=== PATIENT | female | born 1945 | race Caucasian/White ===

== ENCOUNTER 2023-12-30 14:16 | Day surgery (SDC) | payer MEDICARE, OTHER, SELFPAY ==
[2023-12-30 09:41] VITALS: BMI 34.5
[2023-12-30 09:49] VITALS: BMI 34.5
[2023-12-30 09:50] VITALS: BP 138/74; BMI 34.5
[2023-12-30 10:16] LABS: Glucose - Point of Care 121 mg/dl (70-99)
[2023-12-30 12:09] LABS: Glucose - Point of Care 114 mg/dl (70-99)
[2023-12-30 13:50] VITALS: BP 124/66
[2023-12-30 14:00] VITALS: BP 127/77
[2023-12-30 14:06] LABS: Glucose - Point of Care 83 mg/dl (70-99)
[2023-12-30 14:15] VITALS: BP 133/93
[2023-12-30 14:16] VITALS: BP 164/109
[2023-12-30 14:22] VITALS: BP 133/93
== END 2023-12-30 14:30 | disposition home or self-care (01) ==
LOC: GI 14:16
PROVIDERS: ATTENDING PHYSICIAN Internal Medicine Gastroenterology
DX: K31.7 Polyp of stomach and duodenum (principal)
CPT/HCPCS: 43235; 82962

== ENCOUNTER 2024-01-20 06:36 | Day surgery (SDC) | payer MEDICARE, OTHER, SELFPAY ==
[2024-01-20] VITALS (10 sets, daily range): BP systolic 83–149; BP diastolic 36–108; BMI 36.2
[2024-01-20 10:31] LABS: Glucose - Point of Care 119 mg/dl (70-99)
[2024-01-20 12:35] LABS: Glucose - Point of Care 132 mg/dl (70-99)
[2024-01-20] MEDS: ZOFRAN 4 MG IV (13:47)
== END 2024-01-20 13:57 | disposition home or self-care (01) ==
LOC: GI 06:36
PROVIDERS: ATTENDING PHYSICIAN Internal Medicine Gastroenterology
DX: K86.2 Cyst of pancreas (principal); K83.8 Other specified diseases of biliary tract; K83.9 Disease of biliary tract, unspecified; D13.5 Benign neoplasm of extrahepatic bile ducts; K31.89 Other diseases of stomach and duodenum; K31.7 Polyp of stomach and duodenum
CPT/HCPCS: 43274 ×2; 43237; 43261; 43254; 88305; 74330; 76000; 82962; C1769; C2617

== ENCOUNTER 2024-02-12 06:19 | Day surgery (SDC) | payer MEDICARE, OTHER, SELFPAY ==
[2024-02-12 09:36] VITALS: BMI 34.0
[2024-02-12 09:37] VITALS: BMI 34.0
[2024-02-12 09:48] VITALS: BP 109/62
[2024-02-12 09:53] LABS: Glucose - Point of Care 144 mg/dl (70-99)
[2024-02-12 11:02] VITALS: BP 104/62
[2024-02-12 11:05] VITALS: BP 104/62
[2024-02-12 11:15] VITALS: BP 102/53
[2024-02-12 11:30] VITALS: BP 107/79
[2024-02-12 11:45] VITALS: BP 126/74
== END 2024-02-12 12:06 | disposition home or self-care (01) ==
LOC: GI 06:19
PROVIDERS: ATTENDING PHYSICIAN Internal Medicine Gastroenterology
DX: Z46.59 Encounter for fitting and adjustment of other gastrointestinal appliance and device (principal)
CPT/HCPCS: 43247; 82962

== ENCOUNTER 2024-08-18 06:12 | Day surgery (SDC) | payer MEDICARE, OTHER, SELFPAY ==
[2024-08-03 09:11] VITALS: BMI 35.6
[2024-08-18] VITALS (33 sets, daily range): BP systolic 116–158; BP diastolic 66–95; BMI 35.7
[2024-08-18 07:12] LABS: Glucose - Point of Care 128 mg/dl (70-99)
[2024-08-18 09:20] LABS: ACT-LR - POC 279 Seconds (116-155)
[2024-08-18 09:37] LABS: ACT-LR - POC 308 Seconds (116-155)
--- NOTE | 2024-08-18 10:04 | ITS.CL.ABL ---
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
Ablation
Procedure Report:
ELECTROPHYSIOLOGY ABLATION STUDY
DATE:: 08/18/2024 REFERRING: Dr. Brown
INDICATION: Paroxysmal supraventricular tachycardia in the form of atrial fibrillation.
HISTORY: See H and P.
ANTIARRHYTHMIC DRUG: As above
PRE-PROCEDURE ZAHIRA: No atrial thrombus on ICE
PRESENTING RHYTHM: SB
'TIME-OUT': called and confirmed.
SEDATION/ANESTHESIA: provided via the anesthesia department using general anesthesia (LMA).
INTRAVENOUS/ARTERIAL ACCESS:
Right femoral venous - 8Fr
Left femoral venous - 8 Fr, 6 Fr
Ultrasound guidance for bilateral femoral vein access was utilized by me to obtain access with demonstration of normal anatomy
CHADS-VASC Score:
HAS-Bled Score
PROCEDURE:
1. A decapolar CS catheter was placed within the CS for mapping and pacing. This was also used as the reference catheter for the 3-D map.
2. The intracardiac ultrasound catheter was positioned in the RA to identify the FO for targeting of transseptal puncture, assist in identification of the pulmonary vein ostia, monitoring pre and post ablation pulmonary vein flow velocities,
monitoring for 'bubble' formation during RF application as a sign of thermal injury, and to monitor for pericardial effusion during mapping and ablation procedure. Left atrial size, LV ejection fraction, and pulmonary vein flows were monitored
pre and post ablation procedure. The other valves were inspected and found to be free of significant regurgitation or stenosis.
3. Half of the calculated heparin bolus was administered prior to the first transeptal puncture. Transseptal puncture was performed to diagnose RA and LA pressure so that safety of LA mapping and ablation could be further assessed, and to access
the left atrium and pulmonary veins for mapping and ablation. This entailed advancing an 8.5 fr sheath with dilator into the superior vena cava and withdrawing both (monitoring intracardiac ultrasound, fluoroscopy and tip pressure) with the tip
oriented toward the atrial septum. The fossa ovalis was engaged (indicated by sudden displacement of the sheath tip as well as tenting of the fossa seen on intracardiac ultrasound). Left atrial access required a pass with the Brockenaida needle
extended. Left atrial catheter position was confirmed by pressure monitoring (RA mean pressure 8 mm Hg and LA mean presure 14 mm Hg), LA saturation ( 99%), as well as fluoroscopy. The sheath was advanced over the dilator and positioned in the
left atrium. This procedure was repeated for the Agilis sheath. The remainder of the calculated heparin bolus was administered and heparin was
infused to maintain ACT at 300 -350 seconds throughout the case.
4. RA pacing was performed via the proximal decapolar poles and LA pacing was performed via the distal decapolar poles.
5. A quadrapolar catheter was first positioned at the His position for His Bundle recording which was tagged via the 3-D Navex sytem, and then passed to the RVA for RV pacing and recording.
6. The multipolar catheter and the PFA catheter in each of the LIPV, LSPV, RSPV and the RIPV.
7. Next, a 3-D map was created using Navex. A 3-D reconstructed CT image was compared to the 3-D Navex map to assist in anatomic interpretation, mapping and ablation. The CT image and the NavX image were fused.
8. 82 lesions were delivered to each of the 4 PV's and LAPW with electrical silence in each. No other non pv trigger for AF was noted.
9. Normal sinus node and AV zenaida function noted
TOTAL FLOURO TIME: 19.7 minutes 143 mgy
TOTAL RF DURATION: 0 minutes
REVERSAL OF HEPARIN: 40 mg of protamine, slow IV administration
COMPLICATIONS:
None
Intracardiac US shows no pericardial effusion post ablation.
SUMMARY:
Complex left atrial mapping and ablation.
Isolation of all 4 PV and LAPW noted
RECOMMENDATIONS:
1. Admit to monitored bed.
2. Resume anticoagulation
3. OOB 4 hrs
4. Consider same day discharge
Copy to: Dr. Kerrie Brown
[2024-08-18 11:15] LABS: Glucose - Point of Care 146 mg/dl (70-99)
--- NOTE | 2024-08-18 12:15 | PTCARENOTE ---
Pt noted to have oozing on right groin dressing at 1107. Manual pressure applied x 10 minutes. Dressing removed. Oozing/ slow bleeding remains. Manual pressure applied and remained in place until 1215 for continual oozing/ small bleeding. Ludivina Ramirez
MIS DIRECTOR made aware and in to evaluate pt. Ludivina Ramirez NP states she spoke to Dr Maher and protamine IV ordered for pt. Hemostasis obtained at 1215. Just received protamine from pharmacy. Lynette PERKINS made aware and states to still administer protamine with
recent hemostasis. Will administer med and continue to monitor.
[2024-08-18] MEDS: PROTAMINE 1 MG IV (12:16)
--- NOTE | 2024-08-18 13:25 | PTCARENOTE ---
DR HAMPTON AT BEDSIDE. PRESSURE HELD BY DR HAMPTON. SUTURE TO BE PLACED BY DR HAMPTON WITH LIDO AND EPI
--- NOTE | 2024-08-18 16:24 | W.PN.UPDATE ---
Update Note
Progress Note Update
79 yo WF s/p PVI (Same day). She denies cp, sob, anuel diet, EKG SR with BBB, L fem site c/d/i, R groin had continual slow ooze post procedure, suture removed, injected with lido/epi and another stitch placed @130p. b/l groin sites c/d/i, soft. We
will remove suture now and get oob, ambulate. She will resume Eliquis tonight at 8pm at home tonight. She will continue metoprolol. Activity restrictions reviewed. She will f/u Dr. Brown in 3 mo. She is for d/c home after 5pm if groin remains
stable.
SUMMARY:
Complex left atrial mapping and ablation.
Isolation of all 4 PV and LAPW noted
RECOMMENDATIONS:
1. Admit to monitored bed.
2. Resume anticoagulation
3. OOB 4 hrs
4. Consider same day discharge
Copy to: Dr. Kerrie Brown
[2024-08-18] MEDS: ANESTHETIC LOZENGE 1 LOZENGE PO (16:57)
== END 2024-08-18 17:00 | disposition home or self-care (01) ==
LOC: CATH 06:12
PROVIDERS: ATTENDING PHYSICIAN Internal Medicine Cardiovascular Disease; FAMILY PHYSICIAN Family Medicine; OTHER PHYSICIAN Internal Medicine Cardiovascular Disease
DX: I48.0 Paroxysmal atrial fibrillation (principal); I47.19 Other supraventricular tachycardia; I10 Essential (primary) hypertension; E78.5 Hyperlipidemia, unspecified; E11.9 Type 2 diabetes mellitus without complications; Z85.038 Personal history of other malignant neoplasm of large intestine; Z85.42 Personal history of malignant neoplasm of other parts of uterus; Z85.3 Personal history of malignant neoplasm of breast; Z79.01 Long term (current) use of anticoagulants; Z79.84 Long term (current) use of oral hypoglycemic drugs
CPT/HCPCS: C1732; C1730; C1733; C1769; C1892; C1759; C1894; 82962; 85347; 86900; 86901; 93005; 93656

== ENCOUNTER 2024-10-14 18:40 | Inpatient (IN) | payer MEDICARE, OTHER, SELFPAY ==
[2024-10-14] VITALS (18 sets, daily range): BP systolic 102–153; BP diastolic 55–88; BMI 35.9; BMI 36.4; BMI 37.4
[2024-10-14 11:09] LABS: Glucose - Point of Care 136 mg/dl (70-99)
[2024-10-14] MEDS: ASPIR LOW (ENTERIC COATED) 162 MG PO (13:34)
[2024-10-14] MEDS: NITROSTAT (SUBLINGUAL) 0.4 MG SL (13:34)
--- NOTE | 2024-10-14 13:37 | HPS.HSE ---
Family Physician
-
Family Physician: NO INTERVIEW UNKNOWN
Chief Complaint
-
Chest pain, belching status post upper GI endoscopy
History of Present Illness
79-year-old female in same-day surgery after upper GI endoscopic she is surveillance from a previous ampullectomy. She had single polypoid lesion resected and retrieved at the biliary orifice and treated with argon plasma coagulation while in
postop she is complaining of chest pressure through to her back 5 out of 10 and dry heaves and abdominal bloating. She was given sublingual nitro in recovery which made minimal relief to 4 out of 10, although she is starting to belch some. EKG
showed sinus bradycardia with RBBB and history of otherwise normal. She is currently sinus bradycardic with heart rate 49 to 50 bpm on the monitor at bedside. She denies headache, radiation to neck or arms, diaphoresis, fever, chills,, diarrhea,
urinary symptoms.
She has past medical history of paroxysmal symptomatic A-fib/SVT status post ablation 08/18/2024, symptomatic bradycardia, HTN, HLD, DM2 obstructive sleep apnea suspected, colon cancer 2022 status post hemicolectomy, uterine cancer> 5 years status
post NITO with chemo, breast cancer> 5 years status post lumpectomy/radiation, osteoarthritis.
Medical History
Past Medical History
Past Medical History: Reports Other
Additional Past Medical History:
Paroxysmal symptomatic A-fib/SVT status post ablation 08/18/2024
Symptomatic bradycardia
RBBB
HTN
HLD
DM2
Obstructive sleep apnea suspected
Osteoarthritis
Colon cancer 2022 status post hemicolectomy
Uterine cancer> 5 years status post NITO with chemo
Breast cancer> 5 years status post lumpectomy/radiation
Past Surgical History: Reports Other
Additional Past Surgical History:
Status post multiple cardioversions
Left total knee arthroplasty
Right total knee arthroplasty
Cholecystectomy
Social History
Tobacco: Non-smoker
Alcohol: None
Drug: None
Personal:
Living: With Family
Employment: Retired
Family History
Family History: Other (Mother multiple MIs age 60s, age 86 heart related per patient father age 72 multiple myeloma, 2 sisters 1 colon cancer 1 history of colon cancer and multiple myeloma, 4 brothers 1 prostate
cancer 1 osteosarcoma 2 brothers DM 2)
Allergies / Home Medications
Allergies reflects when Allergies were last updated in [employer].
Home Medications with original date entered in [employer]
Allergy/Medication List:
Allergies
Allergy/AdvReac Type Severity Reaction Status Date / Time
No Known Allergies Allergy Verified 10/14/24 10:47
Home Medications
furosemide 20 mg tablet (Lasix) 20 mg PO DAILY PRN fluid retention 12/30/23
metformin 500 mg tablet,extended release 24 hr 500 mg PO BID 12/30/23
apixaban 5 mg tablet (Eliquis) 5 mg PO BID 08/18/24
atorvastatin 20 mg tablet 20 mg PO QPM 08/18/24
glipizide 10 mg tablet, extended release 24 hr 10 mg PO BID 08/18/24
metoprolol succinate 25 mg tablet,extended release 24 hr 25 mg PO BID 08/18/24
multivitamin 1 tab PO QPM 08/18/24
psyllium husk 0.52 gram capsule 0.52 g PO QPM 08/18/24
Review of Systems
-
History Source: Patient and Family ( at bedside)
A 12 point ROS was completed and negative except as noted: Yes
Constitutional: Denies Fever or Fatigue
EENT: Denies Mouth Pain or Runny Nose
Respiratory: Denies Cough or Trouble Breathing
Cardiac: Reports Chest Pain (Chest pressure across chest through to back); Denies Diaphoresis, Palpitations or Syncope
Abdomen/GI: Reports Abdominal Pain (Abdominal fullness with belching), Nausea and Vomiting (Dry heaves); Denies Diarrhea or Constipated
: Denies Dysuria, Frequency, Flank Pain, Incontinence or Difficulty Voiding
Musculoskeletal: Denies Joint Pain or Edema
Skin: Denies Itching or Rash
Neurological: Denies Dizzy, Headache, Weakness or Numbness
Endocrine: Reports No Symptoms
Hematologic/Lymphatic: Reports No Symptoms
Psych: Reports Calm
Physical Exam
Vital Signs
Vital Signs
Temp Pulse Resp BP Pulse Ox
98.6 F 51 15 147/69 96
10/14/24 12:15 10/14/24 13:30 10/14/24 13:15 10/14/24 13:34 10/14/24 13:30
Physical Exam
General: Conversant and Pain (Chest pain); No Fever or Chills
HEENT: NormoCephalic, Anicteric, PERRLA and Other (Dry oral mucosa status post surgery)
Respiratory: Clear; No Wheezes, Rales, Rhonchi or Crackles
Cardiac: S1/S2 and Bradycardia (Sinus); No Murmur, Rub, Gallop or Peripheral Edema
Breast: Deferred by me
GI: Soft, Non Tender, Non Distended, Normal Bowel Sounds and No Hepatosplenomegaly
Rectal: Deferred by Provider
Genito-urinary: Deferred by me
Musculoskeletal: No Clubbing, No Cyanosis and No Edema
Skin: Warm and Dry; No Rash or Jaundice
Neuro: AO x 3, No Motor Deficits, Nonfocal/grossly intact, Cranial Nerves Intact and DTR's Intact & Symmetrical; No Slurred Speech, Facial Droop, Tremors or Sedated
Psych: Calm
Data Reviewed
-
Lab Data: Labs Reviewed by me
Impression/Plan
-
Impression/plan:
Observation TELE
#Chest pain concern for ACS versus Endoscopic polypoid lesion removal induced Acute Pancreatitis
#S/ P single polypoid lesion resected and retrieved at the biliary orifice and treated with argon plasma coagulation
-Nitroglycerin sublingual given once minimal relief
-Patient given aspirin 162 mg, continue aspirin 81 mg daily
-Troponin pending, will trend
-Consult [facility]
-Consult GI Dr. Butler
-Consult GI Dr. Nirmal méndez
-Eliquis 5 mg twice daily last dose was 10/10/2024
Per GI may resume Eliquis tomorrow 10/15/2024
-IV LR bolus 200 cc hour x [address] Butler, Natalio spence then below
-IV LR 150cc/hr
- Iv dilaudid prn pain
- IV zofran
- Npo except ice chips, sips of water, meds
- Lipase 800 will trend
-Check CBC, CMP-Check lipase
EKG: Sinus bradycardia 53 bpm, QTc 489 MS with premature supraventricular complexes, RBBB otherwise normal previous RBBB on 08/18/2024 EKG
#Hx RBBB
#Paroxysmal SVT /atrial fibrillation 08/18/2024
Status post complex left atrial mapping and ablation, isolation of all 4 PV and LA PW noted
-Patient also [facility]
-Per note 08/18/2024 had history of echo October 2023 showing preserved ejection fraction per [facility]ology note
#HTN�benign
BP 102/88
Hold metoprolol 25 mg twice daily now his current heart rate is 49 to 52 bpm on monitor
#HLD
Check lipid profile
-Continue atorvastatin 20 mg every afternoon
#DM2
Accu-Cheks with SSI, check HgbA1c
Hold metformin 500 mg twice daily, glipizide 10 mg twice daily
#Obstructive sleep apnea suspected on prior admit
#Osteoarthritis
Other PMH:
Colon cancer 2022 status post hemicolectomy
Uterine cancer> 5 years status post NITO with chemo
Breast cancer> 5 years status post lumpectomy/radiation
DVT prophylaxis
SCDs defer to cardiology when to resume Eliquis
Full code
[2024-10-14 13:56] LABS: % Basophils 0.5 % (0-2); % Eosinophils 1.4 % (0-6); % Immature Granulocytes 0.4 % (0-0.5); % Lymphocytes 11.4 % (20.5-51.1); % Monocytes 7.8 % (1.7-9.3); % Neutrophils 78.5 % (42.2-75.2); Absolute Eosinophils 0.1 10^3/uL (0-0.7); Absolute Lymphocytes 0.9 10^3/uL (1.2-3.4); Absolute Monocytes 0.6 10^3/uL (0.1-0.6); Absolute Neutrophils 6.1 10^3/uL (1.4-6.5); Hematocrit 37.2 % (37.0-47.0); Hemoglobin 11.9 g/dL (12.0-16.0); Mean Corpuscular Hgb 29.3 pg (27.0-31.0); Mean Corpuscular Volume 91.6 fL (81.0-99.0); Mean Platelet Volume 9.7 fL (7.4-10.4); Nucleated Red Blood Cells % 0 %; Platelet Count 206 10^3/uL (130-400); Red Blood Cell Count 4.06 10^6/uL (4.20-5.40); Red Cell Dist. Width 14.5 % (11.5-14.5); White Blood Cell Count 7.8 10^3/uL (4.8-10.8)
[2024-10-14 14:09] LABS: ALT (SGPT) 34 U/L (0-35); AST (SGOT) 48 U/L (14-36); Albumin 3.9 g/dl (3.5-5.0); Alkaline Phosphatase 98 U/L (38-126); Blood Urea Nitrogen 15 mg/dl (7-17); Calcium 9.3 mg/dl (8.4-10.2); Carbon Dioxide 32 mmol/L (22-30); Chloride 102 mmol/L (98-107); Estimated Creatinine Clearance 94 ml/min; Glucose 151 mg/dl (70-99); Lipase 900 U/L (23-300); Potassium 4.1 mmol/L (3.5-5.1); Sodium 140 mmol/L (135-145); Total Bilirubin 1.2 mg/dl (0.2-1.3); Total Protein 6.5 g/dl (6.3-8.2); eGFR > 60.00
[2024-10-14 14:19] LABS: Troponin I < 0.012 ng/ml
--- NOTE | 2024-10-14 14:29 | CON.CAR ---
Addendum entered and electronically signed by Musa Mayen MD 10/14/24 17:21:
I saw and examined the patient.
The Cord Splicer's note was reviewed and I agree with the note.
Comment: Briefly, 79-year-old woman who underwent upper endoscopy earlier today and post procedurally developed chest discomfort for which cardiology is consulted
Patient tells me that she had lower chest discomfort moderate in intensity earlier today and is now only mild as well as pain to the left shoulder blade. Given the clinical context suspect that this is related to the GI procedure that she underwent
earlier today.
Initial troponin is undetectable, would repeat
ECG unchanged from prior, again would tentatively plan to repeat later today
Lipase is noted to be elevated at 900, suspect this may be the cause of her discomfort
Eliquis currently on hold, would consider resuming anticoagulation when safe from GI standpoint
Rest per Bella Eaton
Original Note:
Consultation
Consultation Request
Date/Time Consultation Requested: 10/14/24
Date/Time Consultation Performed: 10/14/24
Requesting Provider: Dr. Butler of GI
Performing Provider: Dr. Mayen
Reason for Consultation: Chest pain
Medical History
-
History of Present Illness:
Patient came to [facility] for an elective upper GI endoscopy and cardiology is now consulted for chest pain. Patient has a previous ampullectomy and was having a follow-up endoscopy today, patient reports this is her third or fourth endoscopy. She
had a polypoid lesion removed and then had argon plasma coagulation. Following the procedure the patient reported a substernal chest pressure without radiation that she had never experienced before. She felt nauseous and tried to vomit but could
not. An ECG was checked and showed SR without acute ischemic changes. She was given NTG SL x 1 without any significant improvement in her pressure. Patient does not normally have chest pain. There is no known history of CAD. She has not had any
chest pain with her activities recently. With regards to A-fib she was previously on sotalol but it was stopped due to ineffectiveness and she ultimately had successful PVI 08/18/2024 and remains in sinus rhythm now. She is generally on Eliquis 5
mg twice daily, but doses have been held in anticipation of today's procedure.
PMH:
h/o endoscopic papillectomy, biliary sphincterectomy and ampullectomy
Paroxysmal Afib
previously stopped sotalol due to ineffectiveness
s/p CV 12/22/23 and 03/11/24
s/p PVI 08/18/24
Chronic Eliquis OAC
HTN
Hyperlipidemia
DM2
h/o Colon cancer with hemicolectomy 2022
h/o Uterine cancer with NIOT and chemotherapy
h/o Breast cancer with lumpectomy and radiation
Past Medical History
Past Medical History: Other (in HPI)
Past Surgical History: Cardiac (PVI 08/2024), Cholecystectomy, Gynecological (NITO, lumpectomy) and Orthopedic (TKA)
Social History
Tobacco: Non-Smoker
Alcohol: None
Drug: None
Personal:
Living: With Family
Family History
Family History: CAD and Cancer (multiple myeloma)
Allergies / Home Medications
Allergy/AdvReac Type Severity Reaction Status Date / Time
No Known Allergies Allergy Verified 10/14/24 10:47
�Medication �Instructions �Recorded �Confirmed �Type
furosemide 20 mg tablet (Lasix) 20 mg PO DAILY PRN fluid retention 12/30/23 10/14/24 History
metformin 500 mg tablet,extended 500 mg PO BID 12/30/23 10/14/24 History
release 24 hr
apixaban 5 mg tablet (Eliquis) 5 mg PO BID 08/18/24 10/14/24 History
atorvastatin 20 mg tablet 20 mg PO QPM 08/18/24 10/14/24 History
glipizide 10 mg tablet, extended 10 mg PO BID 08/18/24 10/14/24 History
release 24 hr
metoprolol succinate 25 mg 25 mg PO BID 08/18/24 10/14/24 History
tablet,extended release 24 hr
multivitamin 1 tab PO QPM 08/18/24 10/14/24 History
psyllium husk 0.52 gram capsule 0.52 g PO QPM 08/18/24 10/14/24 History
Review of Systems
-
History Source: Patient and Family ( sitting bedside)
All other systems: Negative unless noted
Physical Exam
Vital Signs
Temp Pulse Resp BP Pulse Ox
98.6 F 55 21 133/61 94
10/14/24 12:15 10/14/24 13:45 10/14/24 13:45 10/14/24 13:45 10/14/24 13:45
GEN: NAD. AAOx3
HEENT: EOMI, MMM
LUNGS: RA. CTA B/L, no wheezes or rales
CV: SR on tele. Reg, S1/S2, no murmur
ABD: soft, BS+, NT, ND
EXT: No clubbing, cyanosis, lesions or edema B/L
NEURO: Gross non-focal
SKIN: Warm, dry and pink. No rash
Lab Results
10/14/24 13:45
10/14/24 13:45
Troponin I < 0.012 ng/ml 10/14/24 13:45
Impression / Plan
-
PCP: Dr. Saunders
Cardiology: Dr. Brown
EP: Dr. Maher
Impression:
Chest pain 10/14/24
Status post upper GI endoscopy with polypectomy and argon plasma coagulation 10/14/2024
Elevated lipase and possible pancreatitis
h/o endoscopic papillectomy, biliary sphincterectomy and ampullectomy
Paroxysmal Afib
previously stopped sotalol due to ineffectiveness
s/p CV 12/22/23 and 03/11/24
s/p PVI 08/18/24
Chronic Eliquis OAC
HTN
Hyperlipidemia
DM2
h/o Colon cancer with hemicolectomy 2022
h/o Uterine cancer with NITO and chemotherapy
h/o Breast cancer with lumpectomy and radiation
Echo 10/27/2023: GVH study, EF 59.5%, normal RV size and function, no
Plan:
-Patient came to [facility] today for an elective upper GI endoscopy and cardiology is now consulted for chest pain. Patient has a previous ampullectomy and was having a follow-up endoscopy today, patient reports this is her third or fourth endoscopy.
She had a polypoid lesion removed and then had argon plasma coagulation. Following the procedure the patient reported a substernal chest pressure without radiation that she had never experienced before. She felt nauseous and tried to vomit but
could not. An ECG was checked and showed SR without acute ischemic changes. She was given NTG SL x 1 without any significant improvement in her pressure. Patient does not normally have chest pain. There is no known history of CAD. She has not
had any chest pain with her activities recently. With regards to A-fib she was previously on sotalol but it was stopped due to ineffectiveness and she ultimately had successful PVI 08/18/2024 and remains in sinus rhythm now. She is generally on
Eliquis 5 mg twice daily, but doses have been held in anticipation of today's procedure.
-ECG reviewed by me shows SR without acute ST-T wave changes
-Initial troponin is undetectable
-Lipase lab has now returned and is elevated at 900 and patient says that she was told she may have pancreatitis
-From a cardiac standpoint talked with the patient and and told them that it is reassuring that her initial ECG and troponin are without ischemic changes. Recommend a second troponin in 3 hours and if undetectable would feel confident that
this is not an ACS event.
-It is possible that her SSCP was the result of her pancreatitis, but will defer to her primary social studies teacher if she warrants an outpatient stress test.
-Patient with a known h/o of pAfib, but is in SR by ECG. Telemetry also reviewed by me and shows SR throughout. Patient will continue with her usual dosing of Toprol XL 25 mg twice daily, she took her usual dose this morning. Sotalol previously
stopped due to ineffectiveness
-Eliquis has been on hold leading up to this procedure, but recommend restarting when safe from a GI standpoint.
[2024-10-14] MEDS: LR 1000 IV ×2 (14:30→20:27)
--- NOTE | 2024-10-14 14:55 | W.PN.UPDATE ---
Addendum entered and electronically signed by Bandar Kirk MD 10/14/24 17:26:
Change in level of care: IP TLM in place of Obs TLM due to acute pancreatitis and CP
Original Note:
Update Note
Progress Note Update
This note serves as an addendum to the H&P by spike driver FAYE Jenny FULLER,
HPI
79-year-old female in same-day surgery after upper GI endoscopic she is surveillance from a previous ampullectomy.
- s/p single polypoid lesion resected and retrieved at the biliary orifice and treated with argon plasma coagulation
-s/p procedure reports chest pressure through to her back 5 out of 10 and dry heaves and abdominal bloating
- Rx with sublingual nitro in recovery which made minimal relief to 4 out of 10, although she is starting to belch some.
EKG : sinus bradycardia with RBBB and history of otherwise normal.
She is currently sinus bradycardic with heart rate 49 to 50 bpm on the monitor at bedside.
PHX: see above
Vital Signs
Temp Pulse Resp BP Pulse Ox
98.6 F 50 17 124/55 98
10/14/24 12:15 10/14/24 14:45 10/14/24 14:45 10/14/24 14:00 10/14/24 14:45
PE
General: Conversant and CP
HEENT: Anicteric, Dry oral mucosa status post surgery
Respiratory: Clear; No Wheezes, Rales, Rhonchi or Crackles
Cardiac: S1/S2 and Bradycardia (Sinus); No Murmur, Rub, Gallop or Peripheral Edema
Breast: Deferred by me
GI: Soft, Non Tender, Non Distended, Normal Bowel Sounds and No Hepatosplenomegaly
Rectal: Deferred by Provider
Genito-urinary: Deferred by me
Musculoskeletal: No Edema
Skin: Warm and Dry; No Rash or Jaundice
Neuro: AO x 3, NFND
Psych: Calm
Abnormal Lab Results
10/14/24 10/14/24
11:07 13:45
RBC 4.06 L
Hgb 11.9 L
MCHC 32.0 L
Absolute Lymphs (auto) 0.9 L
Neutrophils % 78.5 H
Lymphocytes % 11.4 L
Carbon Dioxide 32 H
Glucose 151 H
AST 48 H
Lipase 900 H
POC Glucose 136 H
EKG: Sinus bradycardia 53 bpm, QTc 489 MS with premature supraventricular complexes, RBBB otherwise normal previous RBBB on 08/18/2024 EKG
ASSESSMENT & PLAN
Chest pain concern for ACS vs. ADEs s/p Endoscopy without deleiterois complication
S/ P single polypoid lesion resected and retrieved at the biliary orifice and treated with argon plasma coagulation
-SL NTG x1 with minimal relief
- s/p aspirin 162 mg, continue aspirin 81 mg daily
- Pending Troponin pending, will trend
-Eliquis 5 mg twice daily ( last dose on Friday10/10/24) to be decided when to resume by cardiology and GI last dose was 10/10/2024
--Consult [facility]
-Consult GI Dr. Butler
Elevated Lipase 800s
Suspect endoscopy related presumed acute pancreatitis
- NPO and IV LR @ 100 for now
- Trend Lipase
- GI evaluation
HX chronic RBBB
HX Paroxysmal SVT /atrial fibrillation 08/18/2024
Status post complex left atrial mapping and ablation, isolation of all 4 PV and LA PW noted
Of note: Per note 08/18/2024 had history of echo October 2023 showing preserved ejection fraction per [facility] card note
- Patient known [facility]
DVT Px: Eliquis vs. SCD till clear by GI for Eliquis ( last dose on Friday )
Full code
Obs TLM
[2024-10-14 15:45] LABS: HDL Cholesterol 86 mg/dl; LDL Cholesterol, Calculated 53 mg/dl; Total Cholesterol 152 mg/dl (50-199); Triglyceride 69 mg/dl (10-149); Very Low Density Lipoprotein 13 mg/dl (0-30)
[2024-10-14] MEDS: PROTONIX IV 40 MG IV (16:31)
[2024-10-14 16:45] LABS: Troponin I < 0.012 ng/ml
[2024-10-14] MEDS: LIPITOR 20 MG PO (19:16)
[2024-10-14 19:51] LABS: Troponin I < 0.012 ng/ml
[2024-10-15 03:40] VITALS: BP 134/67
[2024-10-15] MEDS: LR 1000 IV ×3 (05:22→18:09)
[2024-10-15 06:29] LABS: % Basophils 0.6 % (0-2); % Eosinophils 0.9 % (0-6); % Immature Granulocytes 0.5 % (0-0.5); % Lymphocytes 18.4 % (20.5-51.1); % Monocytes 11.1 % (1.7-9.3); % Neutrophils 68.5 % (42.2-75.2); Absolute Eosinophils 0.1 10^3/uL (0-0.7); Absolute Lymphocytes 1.2 10^3/uL (1.2-3.4); Absolute Monocytes 0.7 10^3/uL (0.1-0.6); Absolute Neutrophils 4.4 10^3/uL (1.4-6.5); Hematocrit 35.6 % (37.0-47.0); Hemoglobin 11.3 g/dL (12.0-16.0); Mean Corp Hgb Conc. 31.7 g/dL (33.0-37.0); Mean Corpuscular Hgb 29.4 pg (27.0-31.0); Mean Corpuscular Volume 92.7 fL (81.0-99.0); Mean Platelet Volume 10.1 fL (7.4-10.4); Nucleated Red Blood Cells % 0 %; Platelet Count 220 10^3/uL (130-400); Red Blood Cell Count 3.84 10^6/uL (4.20-5.40); Red Cell Dist. Width 14.6 % (11.5-14.5); White Blood Cell Count 6.4 10^3/uL (4.8-10.8)
[2024-10-15 07:02] LABS: ALT (SGPT) 355 U/L (0-35); AST (SGOT) 394 U/L (14-36); Albumin 3.7 g/dl (3.5-5.0); Alkaline Phosphatase 157 U/L (38-126); Blood Urea Nitrogen 15 mg/dl (7-17); Calcium 9.4 mg/dl (8.4-10.2); Carbon Dioxide 30 mmol/L (22-30); Chloride 103 mmol/L (98-107); Estimated Creatinine Clearance 92 ml/min; Glucose 110 mg/dl (70-99); Lipase 837 U/L (23-300); Sodium 140 mmol/L (135-145); Total Bilirubin 2.3 mg/dl (0.2-1.3); Total Protein 6.2 g/dl (6.3-8.2); eGFR > 60.00
[2024-10-15 07:15] VITALS: BP 140/73
[2024-10-15] MEDS: ASPIR LOW (ENTERIC COATED) 81 MG PO (08:01)
[2024-10-15] MEDS: PROTONIX IV 40 MG IV (08:02)
[2024-10-15] MEDS: NSS (PRESERVATIVE FREE) 10 ML IV (08:02)
--- NOTE | 2024-10-15 08:43 | CON.GI ---
Addendum entered and electronically signed by Katey Ellsworth MD 10/15/24 14:26:
I saw and examined the patient.
The MACHINE CAPTAIN's note was reviewed and I agree with the note.
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 Butler she also has history of colon cancer status post hemicolectomy in 2022, uterine
cancer status post NITO and chemotherapy, breast cancer status postlumpectomy and XRT and rest as below who had a follow-up procedure with Dr. Butler yesterday for surveillance and was noted to have a single polypoid lesion at the site of prior
polypectomy which was removed and treated with APC and postop she started having epigastric pain and chest pain and was admitted. She was noted to have elevated lipase level yesterday which is trending down and today she also has elevated bili and
transaminases. Her troponins were negative and cardiology has evaluated the patient and it was thought to be noncardiac. Her pain has completely resolved today.
Assessment and plan duodenal adenoma status post ampullectomy 01/20/[address] Butler and on follow-up endoscopy 10/14 was noted to have a polypoid lesion at the scar site which was removed and APC and the pathology came back negative for any
residual polyp. She did have postop pain which seems to be improving most likely was related to ileus and probable edema at the site with mild pancreatitis and abnormal LFTs also related to this. Will start her on clear liquids for dinner and
continue IV fluids. Continue PPI and Zofran as needed. Will trend LFTs and lipase. Hold statin for now. If not done already would recommend referral to genetic counseling to rule out Hancock syndrome given that she has prior history of uterine,
breast and colon cancer
Original Note:
Consultation
-
Date/Time Consultation Requested: 10/14/24 1539
Date/Time Consultation Performed: 10/15/24 4935
Requesting Provider: MARGIE Brooks
Performing Provider: Dr. Ellsworth/MARGIE Agosto
Reason for Consultation: chest pain post procedure
Medical History
Chief Complaint / HPI
Chief Complaint: chest pain
History of Present Illness:
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
sleep apnea, colon cancer (2022) status post hemicolectomy, uterine cancer status post NITO and chemotherapy, breast cancer status postlumpectomy/XRT, osteoarthritis who was here for elective procedure for follow-up for polyps and duodenum with
surveillance of ampullary adenoma. The patient underwent an EGD on 10/14/2020 4 in the morning with Dr. Butler that showed a duodenal scar from previous ampullectomy. Single possible polypoid lesion versus granulation tissue at the biliary orifice.
This was resected and retrieved. It was treated with APC. In the postop area the patient started complaining of chest pain/pressure that she rated as a '6' to me. She also had pain that went up to her left shoulder. She was given aspirin and
nitro. She did have EKG that showed sinus bradycardia with heart rate between 49 and 50. She had negative troponin x 2. The patient states that the pain went away. She was completely without any chest pain or shoulder pain by the early evening.
At the present time she has very mild tenderness in the mid abdomen. She continues on IV fluids at the present time. She remains NPO. She denies any fevers, chills, nausea, vomiting, melena, hematochezia, dysphagia or odynophagia. No early
satiety or unintentional weight loss. She is comfortable at the present time. She has not required any narcotics/analgesia. She was given a bolus of lactated Ringer's 1 L followed by 150 cc an hour.
Past Medical History
Past Medical History: Arrhythmias (A-fib/SVT, symptomatic bradycardia), Cancer (Colon cancer (2022 status post hemicolectomy, uterine cancer status post NITO and chemotherapy, breast cancer status postlumpectomy/XRT, duodenal adenoma with low-grade
dysplasia), HTN, Hypercholesterolemia, NIDDM and Other (Obstructive sleep apnea, osteoarthritis)
Past Surgical History: Bowel Resection (Hemicolectomy), Gynecological (NITO) and Other (Lumpectomy, cardioversions, left total knee arthroplasty, right total knee arthroplasty, cholecystectomy)
Social History
Tobacco: Non-Smoker
Alcohol: None
Drug: None
Personal:
Living: With Family
Employment: Retired
Family History
Family History: Other (Multiple family members with cancer (2 sisters colon cancer multiple myeloma, 4 brothers (prostate cancer, osteosarcoma))
Allergies / Home Medications
Allergy/AdvReac Type Severity Reaction Status Date / Time
No Known Allergies Allergy Verified 10/14/24 10:47
�Medication �Instructions �Recorded
furosemide 20 mg tablet (Lasix) 20 mg PO DAILY PRN fluid retention 12/30/23
metformin 500 mg tablet,extended 500 mg PO BID 12/30/23
release 24 hr
apixaban 5 mg tablet (Eliquis) 5 mg PO BID 08/18/24
atorvastatin 20 mg tablet 20 mg PO QPM 08/18/24
glipizide 10 mg tablet, extended 10 mg PO BID 08/18/24
release 24 hr
metoprolol succinate 25 mg 25 mg PO BID 08/18/24
tablet,extended release 24 hr
multivitamin 1 tab PO QPM 08/18/24
psyllium husk 0.52 gram capsule 0.52 g PO QPM 08/18/24
Review of Systems
-
All other systems: A 12 pt ROS was Negative except as stated above in HPI
Vital Signs
Temp Pulse Resp BP Pulse Ox
97.9 F 50 18 140/73 98
10/15/24 07:15 10/15/24 07:15 10/15/24 07:15 10/15/24 07:15 10/15/24 07:15
Physical Exam
Exam
General: No Apparent Distress
HEENT: Normocephalic and Anicteric
Respiratory: Clear
Cardiac: Regular Rhythm (Bradycardia)
GI: Soft, Non Distended, Normal Bowel Sounds and Tender (Very mild periumbilical tenderness)
Musculoskeletal: No Edema
Neuro: AO x 3
Psych: Calm
Results
WBC 6.4 10^3/uL (4.8-10.8) 10/15/24 05:32
Hgb 11.3 g/dL (12.0-16.0) L 10/15/24 05:32
Hct 35.6 % (37.0-47.0) L 10/15/24 05:32
MCV 92.7 fL (81.0-99.0) 10/15/24 05:32
Plt Count 220 10^3/uL (130-400) 10/15/24 05:32
Absolute Neuts (auto) 4.4 10^3/uL (1.4-6.5) 10/15/24 05:32
Sodium 140 mmol/L (135-145) 10/15/24 05:32
Potassium 4.0 mmol/L (3.5-5.1) 10/15/24 05:32
Chloride 103 mmol/L (98-107) 10/15/24 05:32
Carbon Dioxide 30 mmol/L (22-30) 10/15/24 05:32
BUN 15 mg/dl (7-17) 10/15/24 05:32
Creatinine 0.6 mg/dL (0.6-1.0) 10/15/24 05:32
Calcium 9.4 mg/dl (8.4-10.2) 10/15/24 05:32
Total Bilirubin 2.3 mg/dl (0.2-1.3) H D 10/15/24 05:32
AST 394 U/L (14-36) H 10/15/24 05:32
ALT 355 U/L (0-35) H 10/15/24 05:32
Alkaline Phosphatase 157 U/L (38-126) H 10/15/24 05:32
Lipase 837 U/L (23-300) H 10/15/24 05:32
Diagnostic Image Results:
None this admission
Prior GI Procedures:
EGD: 10/14/2024 (Dr. Butler) - Duodenal scar from previous ampullectomy.
- A single possible polypoid lesion vs granulation
tissue at the biliary orifice. Resected and retrieved.
Treated with argon plasma coagulation (APC). Path pending.
EGD 02/12/2024 (Dr. Butler):
Two previously placed plastic biliary pancreatic stents were seen in the
ampulla. Stent removal was accomplished with a snare.
Impression: - Plastic biliary pancreatic stents in the duodenum.
Removed.
01/20/2024 EUS (Dr. Butler): - A cystic lesion was seen in the pancreatic body.
- There was no sign of significant pathology in the
pancreatic head, pancreatic body and pancreatic tail.
- There was dilation in the common bile duct which
measured up to 8 mm.
- A mass was found in the ampulla.
- There was no evidence of significant pathology in
the left lobe of the liver.
- No specimens collected.
01/20/2024 ERCP (Dr. Butler): - Endoscopic papillectomy
- The common bile duct was mildly dilated.
- One plastic stent was placed into the ventral
pancreatic duct.
- A biliary sphincterotomy was performed.
- Biopsy was performed in the lower third of the main
duct at the level of ampullectomy to confirm complete
resection of ampullary adenoma.
- One plastic stent was placed into the common bile
duct.
01/20/2024 EGD (Dr. Butler): - Previoulsy biopsy proven adenoma in the ampulla. EMR
performed. Treated with argon plasma coagulation (APC).
- Mucosal resection was performed. Resection and
retrieval were complete. Ampullary adenoma completely excised. No evidence of high-grade dysplasia. Bile duct epithelium with marked thermal artifact.
10/29/2024 EGD (Dr. Butler): - Normal esophagus.
- No gross lesions in the entire stomach.
- A single duodenal polyp (ampullary adenoma).
- No specimens collected.
10/13/2023 EGD (Dr. Torres): Normal esophagus. Normal stomach. 1 duodenal polyp. Fragments duodenal tubulovillous adenoma (low-grade dysplasia).
09/14/2019 colonoscopy (Dr. Torres): 2 (3-4 mm) polyps in the descending colon and at the hepatic flexure. Diverticulosis in the sigmoid colon. The distal rectum and anal verge are normal on retroflexion. (Descending polyp hyperplastic, hepatic
flexure polyp sessile serrated adenoma).
Assessment / Plan
-
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
sleep apnea, colon cancer (2022) status post hemicolectomy, uterine cancer status post NITO and chemotherapy, breast cancer status postlumpectomy/XRT, osteoarthritis who was here for elective procedure for follow-up for polyps and duodenum with
surveillance of ampullary adenoma. The patient underwent an EGD on 10/14/2020 4 in the morning with Dr. Butler that showed a duodenal scar from previous ampullectomy. Single possible polypoid lesion versus granulation tissue at the biliary orifice.
This was resected and retrieved. It was treated with APC. In the postop area the patient started complaining of chest pain/pressure that she rated as a '6' to me. We are following up for the same. Patient with negative troponins. Chest
pain/pressure has resolved. Patient with mild mid abdominal tenderness. States she feels hungry. She remains NPO. She was given a liter of lactated Ringer's followed by 150 cc an hour. She has not required any analgesia. WBC 6.4, hemoglobin
11.3, hematocrit 35.6, platelets 220, sodium 140, potassium 4.0, chloride 103, CO2 30, BUN 15, creatinine 0.6, glucose 110, total bilirubin 2.3 with direct 0.6, AST 394, ALT 355, alk phos 157, lipase 837 down from 900. Troponins negative x 3.
Impression:
Chest pain postprocedure-> negative troponins, resolved discomfort.
Elevated transaminases and lipase-> status post EGD treatment of single sessile polyp lesion versus granulation tissue at the biliary orifice. Coagulation for destruction of remaining lesion with APC.
--> Possible edema causing above elevation of labs
Plan:
-Keep n.p.o. for now, discussed with Dr. Butler. If still without pain later would consider advancing to clears. Will need to discuss with Dr. Butler later this afternoon.
-Continue lactated Ringer's
-Incentive spirometer
-Trend labs in a.m. (CBC, CMP, lipase)
-Await pathology from EGD, biopsy of possible polypoid lesion versus granulation tissue.
-Further recommendations to be forthcoming.
-
-
Thank you for consultation and allowing me to participate in the patient's care. Please call the business operations consultant GI physician during the after hours with any questions or concerns.
[2024-10-15 08:54] LABS: Direct Bilirubin 0.6 mg/dl (0.0-0.4)
--- NOTE | 2024-10-15 09:56 | CM ---
Patient seen bedside.
IA completed.
IMM completed.
patient lives with spouse jose 2 story home wit 3 steps to enter.
Patient independent prior to admission, no assistive devices.
Patient drives, retired.
Spouse will transport home.
VN after knee replacement.
Denies home care needs.
PCP: Dontae Cha ([facility])
pharmacy: [facility]
Plan: home no needs anticpated.
[2024-10-15 11:03] LABS: Glycohemoglobin (HgbA1c) 6.5 % (4.0-5.6)
[2024-10-15 11:09] VITALS: BP 142/68
--- NOTE | 2024-10-15 12:09 | W.PN.CARDCBS ---
Addendum entered and electronically signed by Musa Mayen MD 10/15/24 13:02:
I saw and examined the patient.
The Shingle Sawyer's note was reviewed and I agree with the note.
Comment: Briefly, 79-year-old woman who underwent upper endoscopy and post procedurally developed chest discomfort for which cardiology was consulted
Patient tells me today that her pain is gone and appears to be resting comfortably in bed
Serial troponins have been undetectable here
No ischemic changes on EKG
Suspect this is noncardiac chest pain
Can follow-up with her primary vice president mission integration as an outpatient to discuss any further workup
Eliquis currently on hold, would resume anticoagulation when safe from GI standpoint
Patient has been bradycardic, agree with reducing her metoprolol dose
Stable cardiac status, we will sign off
Please recall as needed
Original Note:
Today's Communication / Plan
-
Non-cardiac chest pain - defer to outpt vice president mission integration if stress test warranted once she is stable from GI standpoint
Resume Eliquis once stable from GI standpoint
Would reduce Toprol to 12.5 mg once a day due to bradycardia
Impression / Plan
-
PCP: Dr. Saunders
Cardiology: Dr. Brown
EP: Dr. Maher
Impression:
Presented w/ Chest pain 10/14/24
Status post upper GI endoscopy with polypectomy and argon plasma coagulation 10/14/2024
Elevated lipase and possible pancreatitis
h/o endoscopic papillectomy, biliary sphincterectomy and ampullectomy
Paroxysmal Afib
previously stopped sotalol due to ineffectiveness
s/p CV 12/22/23 and 03/11/24
s/p PVI 08/18/24
Chronic Eliquis OAC
Chronic RBBB
HTN
Hyperlipidemia
DM2
h/o Colon cancer with hemicolectomy 2022
h/o Uterine cancer with NITO and chemotherapy
h/o Breast cancer with lumpectomy and radiation
Echo 10/27/2023: [facility] study, EF 59.5%, normal RV size and function, no
Plan:
-Presented w/ Chest pain 10/14/24 after undergoing upper endoscopy with polypectomy and argon plasma coagulation
-ECGs x 3 reviewed by me which show SR w/ RBBB without acute ST-T wave changes or ischemic changes
-Troponin x 3 are undetectable
-Found to have significant elevation of transaminases and lipase which likely be secondary to GI procedure.
-Chest pain did not resolve with NTG. Serial trops negative and non-ischemic ECGs. No indication of ACS and chest pain felt to be non-cardiac
-Could consider outpatient stress test if she has reoccurrence of chest pain. Defer to primary outpatient vice president mission integration
-Patient with a known h/o of pAfib and PVI ablation 08/18/2024. No evidence of atrial fib on telemetry or one ECG.
-Patient reports she had been on anywhere between 12.5 mg to 25 mg twice a day of Toprol prior to her ablation. She utilizes an [employer] Watch and heart rates at home have been running 40's bpm to 60's bpm since her ablation. Last dose was 25 mg on
10/14/2024. Would reduce Toprol to 12.5 mg daily. Sotalol previously stopped due to ineffectiveness
-Eliqujose alfredo has been on hold leading up to this procedure, but recommend restarting when safe from a GI standpoint.
HPI 10/14/2024:
Patient came to [facility] today for an elective upper GI endoscopy and cardiology is now consulted for chest pain. Patient has a previous ampullectomy and was having a follow-up endoscopy today, patient reports this is her third or fourth endoscopy. She
had a polypoid lesion removed and then had argon plasma coagulation. Following the procedure the patient reported a substernal chest pressure without radiation that she had never experienced before. She felt nauseous and tried to vomit but could
not. An ECG was checked and showed SR without acute ischemic changes. She was given NTG SL x 1 without any significant improvement in her pressure. Patient does not normally have chest pain. There is no known history of CAD. She has not had any
chest pain with her activities recently. With regards to A-fib she was previously on sotalol but it was stopped due to ineffectiveness and she ultimately had successful PVI 08/18/2024 and remains in sinus rhythm now. She is generally on Eliquis 5
mg twice daily, but doses have been held in anticipation of today's procedure.
Progress Note - Risk And Insurance Manager
Subjective
Date of Service: October 15, 2024
Patient seen and examined. Patient resting comfortably in bed. Denies any additional chest pain. Denies abdominal pain and diet being advanced to liquids
Objective
Labs:
10/15/24 05:32
10/15/24 05:32
Labs
Hgb 11.3 g/dL (12.0-16.0) L 10/15/24 05:32
Hct 35.6 % (37.0-47.0) L 10/15/24 05:32
Plt Count 220 10^3/uL (130-400) 10/15/24 05:32
Sodium 140 mmol/L (135-145) 10/15/24 05:32
Potassium 4.0 mmol/L (3.5-5.1) 10/15/24 05:32
BUN 15 mg/dl (7-17) 10/15/24 05:32
Creatinine 0.6 mg/dL (0.6-1.0) 10/15/24 05:32
Glucose 110 mg/dl (70-99) H 10/15/24 05:32
Troponins
10/14/24 10/14/24 10/14/24
13:45 16:09 19:21
Troponin I < 0.012 < 0.012 < 0.012
Vital Signs and I&O:
Vital Signs
Temp Pulse Resp BP Pulse Ox
97.7 F 51 18 142/68 97
10/15/24 11:09 10/15/24 11:09 10/15/24 11:09 10/15/24 11:09 10/15/24 11:09
Vital Signs
Temp Pulse Resp BP Pulse Ox
97.7 F 51 18 142/68 97
10/15/24 11:09 10/15/24 11:09 10/15/24 11:10/15/24 11:09 10/15/24 11:09
Physical Exam
Physical Exam
GEN: No distress, awake, Ox3, lying in bed
HEENT: supple, anicteric, mmm
LUNGS: CTA, no wheezes/rales
CV: Reg, S1/S2, no murmur, rub or gallop
ABD: soft, BS+, NT/ND
EXT: No edema, clubbing or cyanosis
NEURO: Gross non-focal
SKIN: No rash, warm, dry, pink
--- NOTE | 2024-10-15 14:32 | W.PN.HOSP.TC ---
Today's Communication/Plan
-
pain control
ivf
adv to cld
f/u lfts
resume eliquis ousmane
Assessment / Plan
Assessment / Plan
Physical Exam
General: Conversant and Pain (Chest pain); No Fever or Chills
HEENT: NormoCephalic, Anicteric, PERRLA and Other (Dry oral mucosa status post surgery)
Respiratory: Clear; No Wheezes, Rales, Rhonchi or Crackles
Cardiac: S1/S2 and Bradycardia (Sinus); No Murmur, Rub, Gallop or Peripheral Edema
Breast: Deferred by me
GI: Soft, Non Tender, Non Distended, Normal Bowel Sounds and No Hepatosplenomegaly
Rectal: Deferred by Provider
Genito-urinary: Deferred by me
Musculoskeletal: No Clubbing, No Cyanosis and No Edema
Skin: Warm and Dry; No Rash or Jaundice
Neuro: AO x 3, No Motor Deficits, Nonfocal/grossly intact, Cranial Nerves Intact and DTR's Intact & Symmetrical; No Slurred Speech, Facial Droop, Tremors or Sedated
Psych: Calm
#Midsternal pain
#Endoscopic polypoid lesion removal induced Acute Pancreatitis
#Transaminitiis
#S/ P single polypoid lesion resected and retrieved at the biliary orifice and treated with argon plasma coagulation
-most likely was related to ileus and probable edema at the site with mild pancreatitis and abnormal LFTs also related to this.
-unlikely acs - trops negative
-pain resolved
-IVF
-adv to [facility]
-GI consulted
-Monitor LFTs
-can hold on imaging at this time
-Resume anticoag - no planned intervention
#Pancreatitis
-2/2 to post op inflammation
-ivf
-pain control
-trend lfts
#Hx RBBB
#Paroxysmal SVT /atrial fibrillation 08/18/2024
#Status post complex left atrial mapping and ablation, isolation of all 4 PV and LA PW noted
#Bradycardia
-Patient also [facility] cardiology
-Per note 08/18/2024 had history of echo October 2023 showing preserved ejection fraction per [facility] cardiology note
-Reduce BB dose
#HTN�benign
BP 102/88
-BP
#HLD
Check lipid profile
-Continue atorvastatin 20 mg every afternoon
#DM2
Accu-Cheks with SSI, check HgbA1c
Hold metformin 500 mg twice daily, glipizide 10 mg twice daily
#Obstructive sleep apnea suspected on prior admit
#Osteoarthritis
Other PMH:
Colon cancer 2022 status post hemicolectomy
Uterine cancer> 5 years status post NITO with chemo
Breast cancer> 5 years status post lumpectomy/radiation
DVT prophylaxis
-Eliquis
Anticipated Discharge: 24 - 48 hours
Subjective/Interval History
-
Date of Service: October 15, 2024
pain resolved
Objective Data
-
Labs:
Laboratory Results
10/15/24
05:32
WBC 6.4
Hgb 11.3 L
Hct 35.6 L
Plt Count 220
Sodium 140
Potassium 4.0
Chloride 103
Carbon Dioxide 30
BUN 15
Creatinine 0.6
Glucose 110 H
Calcium 9.4
Total Bilirubin 2.3 H D
AST 394 H
ALT 355 H
Alkaline Phosphatase 157 H
Vital Signs:
Vital Signs
Temp Pulse Resp BP Pulse Ox
97.7 F 51 18 142/68 97
10/15/24 11:09 10/15/24 11:09 10/15/24 11:09 10/15/24 11:09 10/15/24 11:09
Review of Systems
-
History Source: Patient
All other systems: Not reviewed unless documented
Data Reviewed
-
Labs: Labs Reviewed by me
[2024-10-15 15:15] VITALS: BP 134/73
[2024-10-15] MEDS: LIPITOR 20 MG PO (18:09)
[2024-10-15 19:40] VITALS: BP 143/68
[2024-10-15] MEDS: ELIQUIS 5 MG PO (19:48)
[2024-10-15 23:37] VITALS: BP 145/80
[2024-10-16] MEDS: LR 1000 IV ×2 (00:49→06:43)
[2024-10-16 03:44] VITALS: BP 125/65
[2024-10-16 07:36] LABS: % Basophils 0.7 % (0-2); % Eosinophils 1.8 % (0-6); % Immature Granulocytes 0.3 % (0-0.5); % Lymphocytes 15.8 % (20.5-51.1); % Monocytes 10.6 % (1.7-9.3); % Neutrophils 70.8 % (42.2-75.2); Absolute Eosinophils 0.1 10^3/uL (0-0.7); Absolute Monocytes 0.7 10^3/uL (0.1-0.6); Absolute Neutrophils 4.3 10^3/uL (1.4-6.5); Hematocrit 34.4 % (37.0-47.0); Hemoglobin 11.6 g/dL (12.0-16.0); Mean Corp Hgb Conc. 33.7 g/dL (33.0-37.0); Mean Corpuscular Hgb 30.2 pg (27.0-31.0); Mean Corpuscular Volume 89.6 fL (81.0-99.0); Mean Platelet Volume 9.8 fL (7.4-10.4); Nucleated Red Blood Cells % 0 %; Platelet Count 192 10^3/uL (130-400); Red Blood Cell Count 3.84 10^6/uL (4.20-5.40); Red Cell Dist. Width 14.6 % (11.5-14.5); White Blood Cell Count 6.1 10^3/uL (4.8-10.8)
[2024-10-16 08:03] LABS: ALT (SGPT) 260 U/L (0-35); AST (SGOT) 179 U/L (14-36); Albumin 3.7 g/dl (3.5-5.0); Alkaline Phosphatase 163 U/L (38-126); Blood Urea Nitrogen 9 mg/dl (7-17); Calcium 9.4 mg/dl (8.4-10.2); Carbon Dioxide 28 mmol/L (22-30); Chloride 104 mmol/L (98-107); Direct Bilirubin 0.4 mg/dl (0.0-0.4); Estimated Creatinine Clearance 92 ml/min; Glucose 135 mg/dl (70-99); Lipase 116 U/L (23-300); Sodium 140 mmol/L (135-145); Total Bilirubin 1.8 mg/dl (0.2-1.3); Total Protein 6.2 g/dl (6.3-8.2); eGFR > 60.00
[2024-10-16] MEDS: ELIQUIS 5 MG PO (08:43)
[2024-10-16] MEDS: TOPROL XL 12.5 MG PO (08:43)
[2024-10-16] MEDS: PROTONIX IV 40 MG IV (08:44)
[2024-10-16] MEDS: NSS (PRESERVATIVE FREE) 10 ML IV (08:44)
[2024-10-16 08:53] VITALS: BP 136/59
--- NOTE | 2024-10-16 11:43 | W.PN.HOSP.TC ---
Addendum entered and electronically signed by Neftali Conklin MD 10/17/24 16:30:
[id number]
Original Note:
Today's Communication/Plan
-
genetic counseling to rule out Hancock syndrome given that she has prior history of uterine, breast and colon cancer
LFD - if tolerates can DC
F/u with Dr. fuller outpatient
Resume eliquis
F/u CMP outpatient
Hold statin until repeat lfts done and cleared by pcp/gi
BB half dose
F/u PCP, Cards, GI outpt
Assessment / Plan
Assessment / Plan
Physical Exam
General: Conversant and Pain (Chest pain); No Fever or Chills
HEENT: NormoCephalic, Anicteric, PERRLA and Other (Dry oral mucosa status post surgery)
Respiratory: Clear; No Wheezes, Rales, Rhonchi or Crackles
Cardiac: S1/S2 and Bradycardia (Sinus); No Murmur, Rub, Gallop or Peripheral Edema
Breast: Deferred by me
GI: Soft, Non Tender, Non Distended, Normal Bowel Sounds and No Hepatosplenomegaly
Rectal: Deferred by Provider
Genito-urinary: Deferred by me
Musculoskeletal: No Clubbing, No Cyanosis and No Edema
Skin: Warm and Dry; No Rash or Jaundice
Neuro: AO x 3, No Motor Deficits, Nonfocal/grossly intact, Cranial Nerves Intact and DTR's Intact & Symmetrical; No Slurred Speech, Facial Droop, Tremors or Sedated
Psych: Calm
#Midsternal pain
#Endoscopic polypoid lesion removal induced Acute Pancreatitis
#Transaminitiis
#S/ P single polypoid lesion resected and retrieved at the biliary orifice and treated with argon plasma coagulation
-most likely was related to ileus and probable edema at the site with mild pancreatitis and abnormal LFTs also related to this.
-unlikely acs - trops negative
-pain resolved
-IVF
-Tolerated clear liquid diet, advance to low-fat diet
� Hold statin until seen by PCP/GI with repeat LFTs
-GI consulted
-can hold on imaging at this time
-Resume anticoag - no planned intervention
�Follow-up GI outpatient
� Follow-up LFTs outpatient
-genetic counseling to rule out Hancock syndrome given that she has prior history of uterine, breast and colon cancer
#Pancreatitis
-2/2 to post op inflammation
� Improved
� See plan above
-ivf
-pain control
-trend lfts
� Low-fat diet
#Hx RBBB
#Paroxysmal SVT /atrial fibrillation 08/18/2024
#Status post complex left atrial mapping and ablation, isolation of all 4 PV and LA PW noted
#Bradycardia
-Patient also [facility]
-Per note 08/18/2024 had history of echo October 2023 showing preserved ejection fraction per [facility] note
-Reduce BB dose to half dose
#HTN�benign
BP 102/88
-BP
#HLD
Check lipid profile
-Hold atorvastatin 20 mg until seen by pcp/gi
#DM2
Accu-Cheks with SSI, check HgbA1c
Hold metformin 500 mg twice daily, glipizide 10 mg twice daily
#Obstructive sleep apnea suspected on prior admit
#Osteoarthritis
Other PMH:
Colon cancer 2022 status post hemicolectomy
Uterine cancer> 5 years status post NITO with chemo
Breast cancer> 5 years status post lumpectomy/radiation
genetic counseling to rule out Hancock syndrome given that she has prior history of uterine, breast and colon cancer
DVT prophylaxis
-Eliquis
More than 30 minutes spent in discharge including
Final examination of the patient
Summarizing hospital stay
Instructions for continuing care to all relevant caregivers
Preparation of discharge records, prescriptions, and referral forms
Total time spent (35 in minutes):
Anticipated Discharge: Today
Subjective/Interval History
-
Date of Service: October 16, 2024
No pain, tolerated clear liquid diet
Objective Data
-
Labs:
Laboratory Results
10/16/24
07:16
WBC 6.1
Hgb 11.6 L
Hct 34.4 L
Plt Count 192
Sodium 140
Potassium 4.0
Chloride 104
Carbon Dioxide 28
BUN 9
Creatinine 0.5 L
Glucose 135 H
Calcium 9.4
Total Bilirubin 1.8 H
AST 179 H
ALT 260 H
Alkaline Phosphatase 163 H
Vital Signs:
Vital Signs
Temp Pulse Resp BP Pulse Ox
97.9 F 53 21 136/59 95
10/16/24 08:53 10/16/24 08:53 10/16/24 08:53 10/16/24 08:53 10/16/24 08:53
I&O
10/15/24 10/16/24 10/17/24
06:59 06:59 06:59
Intake Total 3480 / 3480
Balance 3480 / 3480
Review of Systems
-
History Source: Patient
All other systems: Not reviewed unless documented
Data Reviewed
-
Labs: Labs Reviewed by me
--- NOTE | 2024-10-16 12:32 | CM ---
Addendum entered by Clementina Carrera 10/16/24 14:56:
Discharge to home today; no needs
Original Note:
Met with patient at bedside; possible discharge today
Reported her will transport home
Plan: discharge to home; no needs
[2024-10-16 13:19] VITALS: BP 155/74
[2024-10-16] MEDS: LR IV (14:28)
--- NOTE | 2024-10-16 14:48 | W.PN.GI.CBS2 ---
Today's Communication / Plan
-
OK to DC home
OP Gi f/u
Assessment / Plan
-
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
sleep apnea, colon cancer (2022) status post hemicolectomy, uterine cancer status post NITO and chemotherapy, breast cancer status postlumpectomy/XRT, osteoarthritis who was here for elective procedure for follow-up for polyps and duodenum with
surveillance of ampullary adenoma. The patient underwent an EGD on 10/14/2020 4 in the morning with Dr. Butler that showed a duodenal scar from previous ampullectomy. Single possible polypoid lesion versus granulation tissue at the biliary orifice.
This was resected and retrieved. It was treated with APC. In the postop area the patient started complaining of chest pain/pressure that she rated as a '6' to me. We are following up for the same. Patient with negative troponins. Chest
pain/pressure has resolved. Patient with mild mid abdominal tenderness. States she feels hungry. She remains NPO. She was given a liter of lactated Ringer's followed by 150 cc an hour. She has not required any analgesia. WBC 6.4, hemoglobin
11.3, hematocrit 35.6, platelets 220, sodium 140, potassium 4.0, chloride 103, CO2 30, BUN 15, creatinine 0.6, glucose 110, total bilirubin 2.3 with direct 0.6, AST 394, ALT 355, alk phos 157, lipase 837 down from 900. Troponins negative x 3.
Impression:
Chest pain postprocedure-> negative troponins, resolved discomfort.
Elevated transaminases and lipase-> status post EGD treatment of single sessile polyp lesion versus granulation tissue at the biliary orifice. Coagulation for destruction of remaining lesion with APC.
--> Possible edema causing above elevation of labs
Plan:
duodenal adenoma status post ampullectomy 01/20/[address] Butler and on follow-up endoscopy 10/14 was noted to have a polypoid lesion at the scar site which was removed and APC and the pathology came back negative for any residual polyp. She did
have postop pain which now resolved most likely was related to ileus and probable edema at the site with mild pancreatitis and abnormal LFTs also related to this.
LFTS trending down
Tolerating low-fat diet with no pain okay to DC home today to follow-up with her outpatient GI Dr. Torres and with Dr. Butler for follow-up surveillance endoscopy
If not done already would recommend referral to genetic counseling to rule out Hancock syndrome given that she has prior history of uterine, breast and colon cancer [facility] patient
Subjective
Subjective
Date of Service: October 16, 2024
No further pain and was able to tolerate low-fat diet for lunch LFTs are trending down remains afebrile
Objective
Data Reviewed
Laboratory Data:
Laboratory Results
10/16/24 07:16
10/16/24 07:16
Laboratory Results
Total Bilirubin 1.8 mg/dl (0.2-1.3) H 10/16/24 07:16
AST 179 U/L (14-36) H 10/16/24 07:16
ALT 260 U/L (0-35) H 10/16/24 07:16
Alkaline Phosphatase 163 U/L (38-126) H 10/16/24 07:16
Lipase 116 U/L (23-300) 10/16/24 07:16
Vital Signs and I&O:
Vital Signs
Temp Pulse Resp BP Pulse Ox
98.6 F 58 19 155/74 97
10/16/24 13:19 10/16/24 13:19 10/16/24 13:19 10/16/24 13:19 10/16/24 13:19
I&O
10/15/24 10/16/24 10/17/24
06:59 06:59 06:59
Intake Total 3480 / 3480
Balance 3479
Physical Exam
Physical Exam
Cardiology: Normal Sinus Rhythm
Pulmonary: Clear
GI: Soft, Non Distended, Non Tender and Normal Bowel Sounds
--- NOTE | 2024-10-16 14:54 | PTCARENOTE ---
patient denies pain, tolerating low fat diet, LFT's trending down, vss, for discharge to home today, will continue to monitor.
--- NOTE | 2024-10-16 15:02 | W.DS.TRANS ---
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
-
Discharge Instructions:
Sleep Apnea Risk High
Discharge Diagnosis/Procedures #Endoscopic polypoid lesion removal induced
Acute Pancreatitis: likely was related to ileus
and probable edema at the site with mild
pancreatitis and abnormal LFTs also related to
this.
Diet Low Fat,Diabetic, Carb Controlled
Activity As tolerated
Blood Work CBC and CMP in 3-5 days with GI/PCP
Others Tests recommend referral to genetic counseling to rule
out Hancock syndrome given that she has prior
history of uterine, breast and colon cancer
Instructions:
Stand-Alone Forms:
Changes to Home Medications: Yes
Discharge Medications:
DC Medications w/original date entered in [facility]
furosemide 20 mg tablet (Lasix) 20 mg PO DAILY PRN fluid retention 12/30/23
metformin 500 mg tablet,extended release 24 hr 500 mg PO BID 12/30/23
apixaban 5 mg tablet (Eliquis) 5 mg PO BID 08/18/24
atorvastatin 20 mg tablet 20 mg PO QPM 08/18/24
glipizide 10 mg tablet, extended release 24 hr 10 mg PO BID 08/18/24
multivitamin 1 tab PO QPM 08/18/24
psyllium husk 0.52 gram capsule 0.52 g PO QPM 08/18/24
metoprolol succinate 25 mg tablet,extended release 24 hr 12.5 mg (1/2 x 25 mg) PO DAILY 30 days #15 tabs 10/16/24
Home Medication Changes
metoprolol succinate 25 mg tablet,extended release 24 hr 12.5 mg (1/2 x 25 mg) PO DAILY 30 days #15 tabs 10/16/24
Pending Results: No
[2024-10-16 16:45] VITALS: BP 129/64
== END 2024-10-16 17:30 | disposition home or self-care (01) | DRG 439 ==
LOC: 3 WEST ACU 18:40
PROVIDERS: Clinical Nurse Specialist Family Health; Internal Medicine Gastroenterology; Nurse Practitioner; ADMITTING PHYSICIAN Internal Medicine; CONSULT PHYSICIAN Internal Medicine Cardiovascular Disease; FAMILY PHYSICIAN Family Medicine; OTHER PHYSICIAN Internal Medicine Gastroenterology
PROC: 0DB98ZZ Excision of Duodenum, Via Natural or Artificial Opening Endoscopic (ICD-10-PCS; 2024-10-14)
DX: K85.80 Other acute pancreatitis without necrosis or infection (principal); I47.19 Other supraventricular tachycardia; K56.7 Ileus, unspecified; R60.9 Edema, unspecified; R79.89 Other specified abnormal findings of blood chemistry; Z85.038 Personal history of other malignant neoplasm of large intestine; Z85.3 Personal history of malignant neoplasm of breast; Z85.42 Personal history of malignant neoplasm of other parts of uterus; Z90.49 Acquired absence of other specified parts of digestive tract; I45.10 Unspecified right bundle-branch block; R74.01 Elevation of levels of liver transaminase levels; I48.0 Paroxysmal atrial fibrillation; R00.1 Bradycardia, unspecified; E11.9 Type 2 diabetes mellitus without complications; Z79.84 Long term (current) use of oral hypoglycemic drugs; I10 Essential (primary) hypertension; E78.00 Pure hypercholesterolemia, unspecified; G47.33 Obstructive sleep apnea (adult) (pediatric); M19.90 Unspecified osteoarthritis, unspecified site; Z96.653 Presence of artificial knee joint, bilateral; Z80.0 Family history of malignant neoplasm of digestive organs; Z80.7 Family history of other malignant neoplasms of lymphoid, hematopoietic and related tissues; Z83.3 Family history of diabetes mellitus; Z80.8 Family history of malignant neoplasm of other organs or systems; Z79.01 Long term (current) use of anticoagulants; Z79.82 Long term (current) use of aspirin; Z79.899 Other long term (current) drug therapy; D13.2 Benign neoplasm of duodenum; Z82.49 Family history of ischemic heart disease and other diseases of the circulatory system; K31.7 Polyp of stomach and duodenum; K31.89 Other diseases of stomach and duodenum; K57.30 Diverticulosis of large intestine without perforation or abscess without bleeding
CPT/HCPCS: 88305; 80053; 80061; 82248; 82962; 83036; 83690; 84484; 85025; 93005